=== PATIENT | male | born 2000 | race Caucasian/White ===

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

== ENCOUNTER → 2021-12-14 14:25 | Outpatient (BNVA) | payer SELFPAY | PROVIDERS: Family Provider Nurse Practitioner Family; PCP Nurse Practitioner; Visit Provider Nurse Practitioner Family | DX: Z20.822 Contact with and (suspected) exposure to COVID-19 (principal); U07.1 COVID-19 | CPT/HCPCS: 87426 ==

== ENCOUNTER 2022-04-09 12:35 | Emergency (ER) | payer SELFPAY ==
[2022-04-09 13:44] VITALS: BP 155/78; PULSE 69; RESP 16; TEMP 36.7; O2SAT 99
--- NOTE | 2022-04-09 13:55 | US_ITS ---
WS: [id number] TESTICULAR ULTRASOUND HISTORY: pain, LEFT side. COMPARISON: 02/02/2017 TECHNIQUE: Real-time and color Doppler imaging or utilized to perform a testicular ultrasound. Right testicle: 4.4 cm x 2.7 cm x 2.3 cm. Normal size and echogenicity. No mass or torsion. Normal color Doppler is present throughout. Systolic and diastolic velocities are both present. Very small hydrocele. Right epididymis: Mildly heterogeneous epididymal head is similar to the prior study. There are small spermatoceles present. Left testicle: 4.1 cm x 2.4 cm x 2.4 cm. Normal size and echogenicity. No mass or torsion. Normal color Doppler is present throughout. Systolic and diastolic velocities are both present. Mildly complex moderate size hydrocele. Very similar to the prior study although the heterogeneity an d low level echoes are new. Left epididymis: Normal epididymis with no increased vascularity. US/US scrotum [id number] IMPRESSION: 1. No testicular mass or torsion. 2. Mildly complex moderate-sized LEFT hydrocele.
--- NOTE | 2022-04-09 14:58 | W.ED.MALEGU ---
HPI - Male Genitourinary General: Chief complaint: Urogenital-Male Stated complaint: Pains in testicals Time Seen by Provider: 04/09/22 14:55 Source: patient Mode of arrival: ambulatory Limitations: no limitations History of Present Illness: Patient is a 21-year-old male who presents to ED today with a complaint of scrotal pain and swelling over the past few days. Patient states he has had one previous episode similar in 2017 but cannot remember much of the details in regards to diagnosis and treatment. Patient feels like the left scrotum is more swollen than the right side. He has not noticed any redness or warmth. Patient has not had any injury or trauma or lifting injuries. He has not noticed any masses or bulges. He is not having any penile discharge or rashes/lesions. Patient states he is and monogamous with his and no concerns for STDs. MD Complaint: testicle pain and testicle swelling Onset (ago): day(s) Duration: constant Location: right testicle and left testicle Severity: moderate Quality: aching Relieving factors: none Exacerbating factors: none Associated symptoms: Reports no associated symptoms; Deny dysuria, hematuria, nausea or vomiting Related Data: Sexually active: Yes Review of Systems Const: Denies: fever(s), chills, body aches, fatigue or malaise GI: Denies: abdominal pain, nausea, vomiting or diarrhea : Reports: testicular pain and scrotal swelling; Denies: flank pain, difficulty urinating, dysuria, urinary frequency, urinary urgency, hematuria, genital lesions or penile discharge Skin/Breast: Denies: rash PFSH ED PFSH: Surgical History No pertinent past surgical history Social History Smoking and tobacco status: never smoked Second hand smoke exposure: No Smoking risk assessment/counseling performed?: No Alcohol intake: never Lives independently: Yes Household members: spouse Housing: Manufactured/Mobile home Marital status: Single Number of children: 2 History of recent travel: No Physical Exam Const: COMMON NORMALS: no acute distress, average body habitus, patient oriented x3, no limitations, healthy appearing, alert and well nourished GENERAL APPEARANCE: cooperative Resp: COMMON NORMALS: normal respiratory effort Cardio: COMMON NORMALS: regular rate and regular rhythm RATE: regular rate RHYTHM: regular rhythm GI: COMMON NORMALS: Normal to inspection, nondistended, normoactive bowel sounds present, Soft to palpation, non-tender, No hepatosplenomegaly present and no masses PALPATION: Yes Soft to palpation and Yes No hepatosplenomegaly present : COMMON NORMALS: Yes no CVA tenderness BLADDER/KIDNEY EXAM: Yes no CVA tenderness PENIS: normal penis MEATUS: meatus normal SCROTUM: Yes testes descended bilaterally, Yes Scrotal tenderness present and Yes scrotal swelling TESTES: Yes testicular lie normal, No testicular tenderness, No testicular mass and Yes epididymides normal Back/Pelvis: COMMON NORMALS: no CVA tenderness Neuro: COMMON NORMALS: patient oriented x3 SENSORIUM/ORIENTATION: Yes alert Skin: COMMON NORMALS: no rashes or lesions noted GENERAL SKIN EXAM: no rashes or lesions noted Course Vital Signs: Vital signs: Vital Signs Temperature 98.1 F 04/09/22 13:44 Pulse Rate 69 04/09/22 13:44 Respiratory Rate 16 04/09/22 13:44 Blood Pressure 155/78 04/09/22 13:44 Pulse Oximetry 99 04/09/22 13:44 Oxygen Delivery Me thod 04/09/22 13:44 MDM - Male Medical Decision Making Patient has a mildly complex moderate sized left hydrocele. Discussed conservative therapy at home and we will have him follow-up with urology due to size and patient's discomfort. Return to ED precautions given. Lab Data Radiology Impressions Scrotum Ultrasound 04/09/22 13:55 IMPRESSION: 1. No testicular mass or torsion. 2. Mildly complex moderate-sized LEFT hydrocele. Discharge Plan Discharge Patient Disposition: Home Clinical Impression: Left hydrocele Condition: Stable Prescriptions: No Action cetirizine [Zyrtec] 10 mg tablet 10 mg PO DAILY 30 Days Qty: 30 5RF Excedrin Extra Strength 250-250-65 mg tablet 2 tab PO Q6H PRN (Reason: pain) 3 Days Qty: 24 0RF Rx Instructions: NO MORE THAN 8 TABS IN 24 HOURS ibuprofen 800 mg tablet 800 mg PO TID PRN (Reason: pain) Qty: 42 0RF Discharge Orders: Discharge ED (Routine); Ordered 04/09/22 Ordered By: Adriana Collins Referrals: Andrea Kim, EM[employer]OYEE [employer]EFITS [employer]IST[employer] [Primary Care Provider] - Patient Instructions: Hydrocele (ED) Activity Restrictions/Additional Instructions: As we discussed we will have case management call you and set you up with a follow-up urology appointment. Coding Level of Care Code ED Import And Export Clerk for Cesar Hernandez
[2022-04-09 15:59] LABS: Add Urine Microscopic? NO; Charge for UA Resulting for Rev
[2022-04-09 16:01] LABS: Bilirubin Urine Neg (Negative); Blood Urine Neg (Negative); Glucose Urine UA Norm (Normal); Ketones Urine Negative (Negative); Leukocyte Esterase Urine Negative (Negative); Nitrate Urine Negative (Negative); Protein Urine Neg (Negative); Specific Gravity, Urine 1.025 (1.005-1.030); Urine Appearance Clear (CLEAR); Urine Color Yellow (Yellow); Urobilinogen Urine Neg (Negative); pH Urine 5 (5-7)
--- NOTE | 2022-04-10 09:03 | DCPLANNER ---
Addendum entered by Angelic Ordaz 04/27/22 14:51: Patient had a follow up appointment scheduled with urology - patient did attend appointment Addendum entered by Angelic Ordaz 04/11/22 13:54: Patient has a follow up appointment scheduled for Wednesday, April 20, [address]22 at 8:[address] Lira at urology. Clinic will call patient with appointment information. Original Note: trust manager had message to schedule a follow up appointment for patient with urology. trust manager sent patients information to the front office staff at urology. Patients information will be printed and reviewed. Clinic will call patient with appointment information.
== END 2022-04-09 16:06 | disposition home or self-care (01) ==
PROVIDERS: Emergency Provider Physician Assistant; PCP Nurse Practitioner
DX: N43.3 Hydrocele, unspecified (principal)
CPT/HCPCS: 76870; 81003; 99284

== ENCOUNTER → 2022-04-20 07:33 | Outpatient (BNVA) | payer SELFPAY | PROVIDERS: PCP Nurse Practitioner; Visit Provider Urology | DX: N50.82 Scrotal pain (principal); N50.812 Left testicular pain; N43.3 Hydrocele, unspecified | CPT/HCPCS: 81003 ==

== ENCOUNTER → 2023-01-28 12:00 | Outpatient (BNVA) | payer SELFPAY | PROVIDERS: PCP Nurse Practitioner; Visit Provider Nurse Practitioner | DX: S69.92XA Unspecified injury of left wrist, hand and finger(s), initial encounter (principal); X58.XXXA Exposure to other specified factors, initial encounter | CPT/HCPCS: 73110 ==